=== PATIENT | male | born 1950 | race Caucasian/White ===

== ENCOUNTER → 2024-05-28 | Outpatient (CLI) | payer OTHER, SELFPAY ==
[2024-05-28 11:23] LABS: Basophils # (Auto) 0.1 Thou/mm3 (0.0-0.2); Basophils % (Auto) 1 % (0-2.5); Eosinophils % (Auto) 10 % (0-10); Hematocrit 42.7 % (41.0-53.0); Hemoglobin 14.6 g/dL (13.5-16.0); Immature Granulocytes % (Auto) 0 % (0-0); Immature Granulocytes Auto 0.02 Thou/mm3 (0.00-0.00); Lymphocytes % (Auto) 31 % (10-50); Mean Corpuscular HGB Conc 34.2 g/dl (31.0-37.0); Mean Corpuscular Hemoglobin 29.4 pg (25.0-35.0); Mean Corpuscular Volume 86 fL (80-100); Monocytes # (Auto) 0.8 Thou/mm3 (0.0-0.8); Monocytes % (Auto) 8 % (0-12); Neutrophils % (Auto) 51 % (37-80); Nucleated Red Blood Cell % 0 /100 WBC (0); Platelet Count 298 Thou/mm3 (140-440); RDW Standard Deviation 42.6 fL (35.1-43.9); Red Blood Count 4.97 Miln/mm3 (4.50-5.90); White Blood Count 9.8 Thou/mm3 (3.8-10.6)
[2024-05-28 11:38] LABS: Prostate Specific Antigen 0.15 ng/mL (0-4.00)
[2024-05-28 11:42] LABS: Glucose Estimated Average 117 mg/dL (80-131); Hemoglobin A1C 5.7 % Hgb (4.8-6.0)
[2024-05-28 11:43] LABS: Vitamin D 25 Hydroxy Total 32.4 ng/mL (7.3-40.2)
[2024-05-28 12:49] LABS: Alanine Aminotransferase 16 U/L (10-49); Albumin, Serum 4.2 gm/dL (3.4-4.8); Albumin/Globulin Ratio 1.4 (1.2-2.2); Alkaline Phosphatase 124 U/L (46-116); Anion Gap 6 (7-16); Aspartate Amino Transferase 19 U/L (0-34); BUN/Creatinine Ratio 9 Ratio (12-20); Bilirubin,Total 0.9 mg/dL (0.3-1.2); Blood Urea Nitrogen 15 mg/dL (9-23); Calcium 9.7 mg/dL (8.3-10.6); Calcium (Corrected) 9.7 mg/dL (8.5-10.1); Carbon Dioxide 26.2 mMol/L (20.0-31.0); Cardiac Risk Estimate 3.7 RATIO (4.0-6.7); Chloride 102 mMol/L (98-107); Cholesterol 205 mg/dL (132-200); Creatinine (Component) 1.6 mg/dL (0.6-1.3); Free T4 (Free Thyroxine) 0.86 ng/dL (0.89-1.76); Glucose 103 mg/dL (74-106); HDL Cholesterol 55 mg/dL (40-60); LDL Cholesterol,Calculated 132 mg/dL (0-130); Osmolality,Calculated 269 (275-295); Potassium 4.7 mMol/L (3.4-5.1); Sodium 134 mMol/L (136-145); Thyroid Stimulating Hormone 6.63 uIU/mL (0.55-4.78); Total Protein 7.2 gm/dL (5.7-8.2); Triglycerides 90 mg/dL (30-150); eGFR 45 See Note
== END | disposition home or self-care (01) ==
LOC: COPL 10:35
PROVIDERS: PCP Internal Medicine; Referring Provider Internal Medicine; Visit Provider Internal Medicine
DX: Z00.00 Encounter for general adult medical examination without abnormal findings (principal); N40.1 Benign prostatic hyperplasia with lower urinary tract symptoms; E55.9 Vitamin D deficiency, unspecified
CPT/HCPCS: 36415; 80053; 80061; 82306; 83036; 84153; 84439; 84443; 85025

== ENCOUNTER 2024-06-08 06:45 | Day surgery (SDC) | payer OTHER, SELFPAY ==
--- NOTE | 2024-06-03 07:00 | XR_ITS ---
Examination: PA lateral chest 2 views TECHNIQUE: Upright PA lateral chest 2 views EXAMINATION: Coughing, chronic preop FINDINGS: Abnormal interstitial disease in the mid and lower lung zones Mild prominence left ventricle Moderate osteopenia IMPRESSION: Bronchitis versus pulmonary fibrosis at the lung bases, clinical correlation advised
--- NOTE | 2024-06-03 07:00 | EKG_ITS ---
[facility] Test Date: 2024-06-03 Pat Name: CAROL MILLIGAN Department: Room: - Gender: Male Service Crew Leader: LEELA : 1950 Requested By: Broderick Roland Order Number: [id number] Reading MD: Broderick Roland Measurements Intervals [place] Rate: 79 P: 36 [place]: 169 QRS: 35 QRSD: 101 T: 31 QT: 376 QTc: 431 Interpretive Statements SINUS RHYTHM Compared to ECG 08/11/2023 21:26:21 No significant changes /store/S0/[id number]/ecg/[id number].pdf
[2024-06-03 07:15] VITALS: BMI 30.7
[2024-06-03 09:41] LABS: Basophils # (Auto) 0.1 Thou/mm3 (0.0-0.2); Basophils % (Auto) 1 % (0-2.5); Eosinophils # (Auto) 0.9 Thou/mm3 (0.0-0.5); Eosinophils % (Auto) 8 % (0-10); Hematocrit 41.6 % (41.0-53.0); Hemoglobin 14.2 g/dL (13.5-16.0); Immature Granulocytes % (Auto) 0 % (0-0); Immature Granulocytes Auto 0.04 Thou/mm3 (0.00-0.00); Lymphocytes # (Auto) 3.2 Thou/mm3 (1.0-4.8); Lymphocytes % (Auto) 30 % (10-50); Mean Corpuscular HGB Conc 34.1 g/dl (31.0-37.0); Mean Corpuscular Hemoglobin 29.2 pg (25.0-35.0); Mean Corpuscular Volume 85 fL (80-100); Monocytes % (Auto) 10 % (0-12); Neutrophils # (Auto) 5.6 Thou/mm3 (1.8-7.7); Neutrophils % (Auto) 51 % (37-80); Nucleated Red Blood Cell % 0 /100 WBC (0); Platelet Count 305 Thou/mm3 (140-440); RDW Standard Deviation 42.3 fL (35.1-43.9); Red Blood Count 4.87 Miln/mm3 (4.50-5.90); White Blood Count 10.8 Thou/mm3 (3.8-10.6)
[2024-06-03 09:49] LABS: Partial Thromboplastin Time 29.3 Seconds (22.0-36.0); Prothrombin Time 10.6 Seconds (9.0-12.2)
[2024-06-03 09:58] LABS: Alanine Aminotransferase 14 U/L (10-49); Albumin, Serum 4.5 gm/dL (3.4-4.8); Albumin/Globulin Ratio 1.4 (1.2-2.2); Alkaline Phosphatase 114 U/L (46-116); Anion Gap 4 (7-16); Aspartate Amino Transferase 18 U/L (0-34); BUN/Creatinine Ratio 10 Ratio (12-20); Bilirubin,Total 0.6 mg/dL (0.3-1.2); Blood Urea Nitrogen 17 mg/dL (9-23); Calcium 9.6 mg/dL (8.3-10.6); Calcium (Corrected) 9.6 mg/dL (8.5-10.1); Carbon Dioxide 27.6 mMol/L (20.0-31.0); Chloride 100 mMol/L (98-107); Creatinine (Component) 1.7 mg/dL (0.6-1.3); Estimated Creatinine Clearance 45.2 mL/min (>60); Globulin 3.2 gm/dL (2.3-3.5); Glucose 96 mg/dL (74-106); Osmolality,Calculated 266 (275-295); Potassium 4.4 mMol/L (3.4-5.1); Sodium 132 mMol/L (136-145); Total Protein 7.7 gm/dL (5.7-8.2); eGFR 42 See Note
--- NOTE | 2024-06-03 12:36 | SUR.PREOP ---
DR CAMPA REVIEWED AND OKAYED CARDIAC NOTES AND AWARE OF CXR.
--- NOTE | 2024-06-05 12:12 | ESHP_ITS ---
RE: CAROL MILLIGAN : 1950 DATE OF ADMISSION: 06/03/2024 DATE OF SURGERY: 06/08/2024. CHIEF COMPLAINT: Numbness, tingling, left hand; triggering left ring finger. HISTORY OF PRESENT ILLNESS: The patient is a 74-year-old who has developed numbness and tingling in the left hand with triggering of the left ring finger. He continues to have persistent numbness and tingling and pain in the left ring finger and left hand. Positive EMG and nerve conduction study. PAST MEDICAL HISTORY: Operation: Tonsillectomy and herniorrhaphy. ALLERGIES: TETRACYCLINE MEDICATIONS: 1. Montelukast. 2. Pravastatin. 3. Amlodipine. 4. Albuterol inhaler. MAJOR MEDICAL ILLNESSES: 1. Hypertension. 2. Prostate cancer in 2004. FAMILY HISTORY: Oral carcinoma, family history of heart disease, TB, diabetes, glaucoma, myocardial infarction, liver disease, hypertension, emphysema, stroke, epilepsy, bleeding disorder, and ulcer. REVIEW OF SYSTEMS: Weight is stable. Appetite is good. Energy level good. Denies chest pain, shortness of breath, orthopnea, paroxysmal nocturnal dyspnea, dyspnea on exertion, productive cough, hemoptysis. Denies nausea, vomiting, diarrhea, constipation, hematemesis, hematochezia, melena, black tarry bowel movements. Denies dysuria or prior hematuria. Denies stroke, seizures, or syncopal episodes. No change in moles. No difficulty with balance. SOCIAL HISTORY: He does not smoke. Does not drink. PHYSICAL EXAMINATION: GENERAL: Shows a well-developed, well-nourished male in no acute distress. HEENT: Normocephalic without masses. EOMs full. Throat clear. NECK: Supple. CHEST: Clear to P and A. CARDIOVASCULAR: Heart: Regular rate and rhythm. No murmurs or gallops. ABDOMEN: Soft, nontender. No masses. No organomegaly. EXTREMITIES: Examination of the extremity shows he has numbness and tingling in the left hand median nerve distribution. There is triggering of the left long finger. ASSESSMENT: 1. Carpal tunnel syndrome, left hand. 2. Left ring trigger finger. PLAN: Release of left carpal tunnel and left ring trigger finger. Risks of the procedure were explained to the patient. Signed informed consent was obtained in my office with Dr. Broderick iNxon. DT: 15:28:34 TT: 16:07:00 Ref: [id number] - TID: [id number]
[2024-06-08] VITALS (11 sets, daily range): BP systolic 115–157; BP diastolic 75–95; PULSE 64–75; RESP 12–19; TEMP 36.3–36.9; O2SAT 95–97; BMI 30.2
--- NOTE | 2024-06-08 10:30 | SUR.PHASEII ---
pt received from OR in recovery bay 7. pt asleep but responds to voice, breathing unlabored on room air. v/s stable. pt dressing to left hand cdi. report received from Dr. Link and Jadiel LAURENT.
--- NOTE | 2024-06-08 12:44 | SUR.PHASEII ---
pt awake and alert, breathing unlabored on room air. v/s stable. pt dressing to left hand cdi. pt able to ambulate to wheelchair with steady gait. d/c instructions given with martin Cai in room, all questions answered. pt d/c via wheelchair with all belongings.
--- NOTE | 2024-06-08 21:57 | PD.SUROPNT ---
Date of Procedure 06/08/24 Surgeon Broderick Nixon MD Surgical Staff Operation Date: 06/08/24 09:00 Case Staff Anesthesiologist: Yury Link
--- NOTE | 2024-06-08 21:58 | ESOP_ITS ---
Date of Procedure 06/08/24 Pre Op Diagnosis 1. Left carpal tunnel syndrome 2. Left ring trigger finger Post Op Diagnosis Same Procedure 1. Release of left carpal tunnel. 2. Release of left ring trigger finger Findings Thick transverse carpal ligament left palm. Thickened A1 cary left ring trigger finger Procedure Description Patient was taken the operating room and the left carpal tunnel and left ring trigger finger were identified as the correct parts of the left hand carpal tunnel and the left ring trigger finger. Patient was given IV Ancef. MAC anesthesia was delivered and infiltration of the palmar aspect of the left hand over the transverse carpal ligament as well as a digital nerve block left ring finger were carried out. Lidocaine was used for the local anesthesia. The left upper extremity was then elevated and exsanguinated with Esmarch bandage. The tourniquet was inflated. Good hemostasis was achieved. L ongitudinal incision was made over the transverse carpal ligament. It was carried down through the subcutaneous tissue and the palmar aponeurosis was divided. The transverse carpal ligament was incised distally with a #15 blade and proximally into the distal antebrachial fascia he using a small curved strabismus scissors the ligament was released in its entirety. The nerve was noted to be pinched deep to the transverse carpal ligament. After this was done a transverse incision was made over the metacarpal phalangeal joint of the left ring finger. Incision was carried down through the subcutaneous tissue to the palmar aponeurosis which was divided gentle blunt dissection was carried out down to the A1 cary It was identified and incised. The patient was then awakened and asked to flex and extend the left ring finger. He was able to do so and there was absolutely no triggering. Both wounds copious irrigated with Betadine and saline solution. The skin was closed with 5-0 nylon over the ring finger and then in layers for the left carpal tunnel release using 5-0 Vicryl and 5-0 nylon. Tourniquet deflated Bulky dressing was applied using Dakin soaked Kerlix sponges dry Kerlix sponges and 4 inch cut bias. Bactroban ointment was applied prior to the dressing. Addendum the tourniquet was deflated and minimal bleeding was encountered at the metacarpal phalangeal joint left ring finger and there was some subcutaneous bleeding of the left carpal tunnel release and good hemostasis was achieved with the Bovie both wounds were dry at the end of the procedure. Sponge needle counts were correct. Taken to the recovery room uneventfully Anesthesia MAC and local Drains 0 Implants None Pathology / specimen None Pathology comment: None IVF Infused 500 Urine Output 0 Estimated Blood Loss 10 Condition Stable Surgeon Broderick Nixon MD Surgical Staff Operation Date: 06/08/24 09:00 Case Staff Anesthesiologist: uYry Link
== END 2024-06-08 12:44 | disposition home or self-care (01) ==
PROVIDERS: PCP Internal Medicine; Referring Provider Orthopaedic Surgery; Visit Provider Orthopaedic Surgery
PROC: (CPT 26055; principal; 2024-06-08 08:45)
PROC: (CPT 64721; 2024-06-08 08:45)
DX: G56.02 Carpal tunnel syndrome, left upper limb (principal); M65.342 Trigger finger, left ring finger; Z82.49 Family history of ischemic heart disease and other diseases of the circulatory system; Z83.3 Family history of diabetes mellitus; Z01.810 Encounter for preprocedural cardiovascular examination
CPT/HCPCS: 26055; 64721; 36415; 71046; 80053; 85025; 85610; 85730; 93005; A4649; J0690; J1885; J2250; J2704; J3010; J3490; A9270

== ENCOUNTER → 2024-07-31 | Outpatient (CLI) | payer OTHER, SELFPAY ==
[2024-07-31 14:36] LABS: Free T4 (Free Thyroxine) 1.21 ng/dL (0.89-1.76); Thyroid Stimulating Hormone 0.93 uIU/mL (0.55-4.78)
== END | disposition home or self-care (01) ==
LOC: COPL 13:47
PROVIDERS: PCP Internal Medicine; Referring Provider Internal Medicine; Visit Provider Internal Medicine
DX: E03.9 Hypothyroidism, unspecified (principal)
CPT/HCPCS: 36415; 84439; 84443

== ENCOUNTER → 2024-08-05 | Outpatient (CLI) | payer OTHER, SELFPAY ==
--- NOTE | 2024-08-05 09:00 | XR_ITS ---
Examination: CT chest, without intravenous contrast. Sagittal and coronal 2-D reconstructions. Exam date and time: August 05, 2024 0909 hours INDICATIONS: CT chest February 05, 2024 bilateral pulmonary nodules, also noted on CT chest November 05, 2023 CTDI:vol (mGy) 13.9 DLP: (mGycm) 531 Technique: Multiple 3.0 mm axial sections of the chest to been obtained. Bone and lung density settings are obtained. Sagittal and coronal 2-D reconstructions have been obtained. Low dose protocols were performed. One or more of the following dose reduction techniques were used; automated exposure control, adjustment of the mA and/or KV according to patient size, use of iterative reconstruction technique. Findings: No thoracic aortic aneurysmal dilatation Pulmonary artery segments are not enlarged Mild calcification left anterior descending coronary artery No paratracheal tracheobronchial or bronchopulmonary adenopathy No change in bilateral subcentimeter pulmonary nodules Mild pulmonary fibrosis bilaterally No interval pneumonia or pulmonary edema Stable liver cysts IMPRESSION: No change in bilateral subcentimeter pulmonary nodules No new pulmonary nodules
== END | disposition home or self-care (01) ==
LOC: CCTX 08:36
PROVIDERS: Referring Provider Specialist; Visit Provider Specialist
DX: R91.8 Other nonspecific abnormal finding of lung field (principal)
CPT/HCPCS: 71250

== ENCOUNTER 2024-08-17 06:20 | Day surgery (SDC) | payer OTHER, SELFPAY ==
[2024-08-14 10:53] VITALS: BMI 30.8
[2024-08-14 12:28] LABS: Basophils # (Auto) 0.1 Thou/mm3 (0.0-0.2); Basophils % (Auto) 1 % (0-2.5); Eosinophils # (Auto) 0.8 Thou/mm3 (0.0-0.5); Eosinophils % (Auto) 8 % (0-10); Hematocrit 41.4 % (41.0-53.0); Hemoglobin 14.1 g/dL (13.5-16.0); Immature Granulocytes % (Auto) 0 % (0-0); Immature Granulocytes Auto 0.04 Thou/mm3 (0.00-0.00); Lymphocytes # (Auto) 2.8 Thou/mm3 (1.0-4.8); Lymphocytes % (Auto) 30 % (10-50); Mean Corpuscular HGB Conc 34.1 g/dl (31.0-37.0); Mean Corpuscular Hemoglobin 29.3 pg (25.0-35.0); Mean Corpuscular Volume 86 fL (80-100); Monocytes # (Auto) 0.8 Thou/mm3 (0.0-0.8); Monocytes % (Auto) 8 % (0-12); Neutrophils # (Auto) 5.1 Thou/mm3 (1.8-7.7); Neutrophils % (Auto) 53 % (37-80); Nucleated Red Blood Cell % 0 /100 WBC (0); Platelet Count 286 Thou/mm3 (140-440); RDW Standard Deviation 42.2 fL (35.1-43.9); Red Blood Count 4.82 Miln/mm3 (4.50-5.90); White Blood Count 9.6 Thou/mm3 (3.8-10.6)
[2024-08-14 12:36] LABS: Partial Thromboplastin Time 28.5 Seconds (22.0-36.0); Prothrombin Time 10.9 Seconds (9.0-12.2)
[2024-08-14 12:38] LABS: Alanine Aminotransferase 11 U/L (10-49); Albumin, Serum 4.1 gm/dL (3.4-4.8); Albumin/Globulin Ratio 1.3 (1.2-2.2); Alkaline Phosphatase 106 U/L (46-116); Anion Gap 6 (7-16); Aspartate Amino Transferase 20 U/L (0-34); BUN/Creatinine Ratio 14 Ratio (12-20); Bilirubin,Total 0.5 mg/dL (0.3-1.2); Blood Urea Nitrogen 20 mg/dL (9-23); Calcium 9.2 mg/dL (8.3-10.6); Calcium (Corrected) 9.2 mg/dL (8.5-10.1); Carbon Dioxide 26.7 mMol/L (20.0-31.0); Chloride 102 mMol/L (98-107); Creatinine (Component) 1.4 mg/dL (0.6-1.3); Globulin 3.1 gm/dL (2.3-3.5); Glucose 107 mg/dL (74-106); Osmolality,Calculated 272 (275-295); Potassium 4.7 mMol/L (3.4-5.1); Sodium 135 mMol/L (136-145); Total Protein 7.2 gm/dL (5.7-8.2); eGFR 53 See Note
--- NOTE | 2024-08-15 19:20 | ESHP_ITS ---
RE: CAROL MILLIGAN : 1950 DATE OF ADMISSION: 08/17/2024 DATE OF SURGERY: 08/17/2024. CHIEF COMPLAINT: Numbness and tingling, right hand. HISTORY OF PRESENT ILLNESS: The patient is a 74-year-old who has developed numbness and tingling in his right hand. EMG and nerve conduction test consistent with a right carpal tunnel syndrome. He recently had his left carpal tunnel released and is doing very well. PAST MEDICAL HISTORY: Reviewed. The patient has two children. BLOOD TRANSFUSION: None. OPERATIONS: Tonsillectomy, herniorrhaphy, prostate surgery. ALLERGIES: TETRACYCLINE. MEDICATIONS: 1. Amlodipine. 2. Montelukast. 3. Pravastatin. 4. Albuterol. MAJOR MEDICAL ILLNESSES: History of asthma, hypertension, elevated cholesterol. FAMILY HISTORY: Positive for cancer. MAJOR MEDICAL ILLNESSES: Denies heart disease, heart attack, heart murmur, gout, kidney disease, liver disease, hepatitis, polio, tuberculosis, arthritis, yellow jaundice, cholelithiasis, diabetes, valley fever, depression, ulcer, or cancer. FAMILY HISTORY: Unremarkable. REVIEW OF SYSTEMS: Denies chest pain, shortness of breath, orthopnea, paroxysmal nocturnal dyspnea, dyspnea on exertion, productive cough. Denies nausea, vomiting, diarrhea, constipation, hematemesis, hematochezia, melena, black tarry bowel movements. Denies dysuria or prior hematuria. Denies stroke, seizures, or syncopal episodes. No difficulty with balance. Numbness and tingling in the right hand. Does not smoke. Does not drink. Had release of his left carpal tunnel in 06/2024 and is doing well. PHYSICAL EXAMINATION: GENERAL: Shows a well-developed, well-nourished male in no acute distress. HEENT: Normocephalic without masses. EOMs full. Throat is clear. NECK: Supple. CHEST: Clear to P and A. HEART: Regular rate and rhythm. No murmurs. No gallops. ABDOMEN: Soft, nontender. No masses. No organomegaly. BREASTS, RECTAL AND GENITAL: Deferred. EXTREMITIES: Examination of the extremities shows he has numbness and tingling in his right hand median nerve distribution. Positive Phalen's test. Does have some thenar atrophy, right hand. ASSESSMENT: Right carpal tunnel syndrome. PLAN: Release of right carpal tunnel. Risks of the procedure were explained to the patient including the possibility of infection, no improvement, need for further surgery, recurrence, during anesthesia and he understands and willing to proceed. DT: 16:30:47 TT: 19:07:00 Ref: [id number] - TID: [id number]
[2024-08-17] VITALS (8 sets, daily range): BP systolic 86–132; BP diastolic 53–83; PULSE 72–81; RESP 12–20; TEMP 36.1–36.8; O2SAT 96–97; BMI 30.1
[2024-08-17] MEDS: ALBUTEROL RT 2.5 MG/3 ML NEBU INH (07:27)
[2024-08-17] MEDS: RINGERS LACTATED 1000 ML 1,000 ML 20 ML IV (07:27)
--- NOTE | 2024-08-17 10:15 | PD.SUROPNT ---
Date of Procedure 08/17/24 Pre Op Diagnosis Right carpal tunnel syndrome Post Op Diagnosis Right carpal tunnel syndrome Procedure Release of right carpal tunnel Findings Thick transverse carpal ligament right wrist Procedure Description Patient taken the operating room after satisfactory general anesthesia was achieved the right upper extremity was identified the correct extremity. He is received 2 g of IV Ancef. The arm was prepped draped standard fashion. The arm was elevated and exsanguinated weighted with an Esmarch bandage. The tourniquet was plated to 200 mmHg. A longitudinal incision was made over the transverse carpal ligament. It was carried down through the subcutaneous tissue. Surgeon Broderick Nixon MD Surgical Staff Operation Date: 08/17/24 08:45 Case Staff Anesthesiologist: Yury Link
--- NOTE | 2024-08-17 10:17 | SUR.PHASEI ---
pt received from OR in recovery bay 1. pt obtunded, breathing unlabored on 5 nc, lma in place. v/s stable. pt dressing to right wrist/hand cdi. report received from Isiah LAURENT and Dr. Link.
--- NOTE | 2024-08-17 10:20 | PD.SUROPNT ---
Date of Procedure 08/17/24 Pre Op Diagnosis Right carpal tunnel syndrome Post Op Diagnosis Right carpal tunnel syndrome Procedure Release of right carpal tunnel Findings Thick transverse carpal ligament Procedure Description Patient taken the operating room and after satisfactory general anesthesia was achieved the right upper extremity identified as the correct extremity during the timeout procedure. He received 2 g of Ancef. The right upper extremity was then prepped and draped in the standard fashion. The arm was elevated and exsanguinated with an Esmarch bandage. The tourniquet was plated to 200 mmHg. Longitudinal incision was made over the palmar aspect of the hand. Subcutaneous tissue was divided. The palmar aponeurosis was divided. Transverse carpal ligament was identified and split distally with a #15 blade and proximally into the distal antebrachial fascia using a small curved strabismus scissors. The ligament was released completely. Small bleeders were electrocoagulated after the tourniquet was released. Skin was closed with interrupted 4-0 and 5-0 nylon suture. The wound edges were infiltrated with 2% lidocaine. Sponge needle counts correct. Bulky dressing applied. Taken to the recovery room uneventfully. Anesthesia GETA Drains None Implants None Pathology / specimen None IVF Infused 700 Urine Output 0 Estimated Blood Loss 10 Condition Stable Disposition PACU Surgeon Broderick Nixon MD Surgical Staff Operation Date: 08/17/24 08:45 Case Staff Anesthesiologist: Yury Link
--- NOTE | 2024-08-17 10:43 | SUR.PHASEI ---
pt able to tolerate oral fluids without difficulty swallowing or nausea/vomiting.
--- NOTE | 2024-08-17 11:24 | SUR.PHASEII ---
pt awake and alert, breathing unlabored on room air. v/s stable. pt dressing to right hand/wrist cdi. pt able to ambulate to wheelchair with steady gait. d/c instructions given with martin Cai in room, all questions answered. pt d/c via wheelchair with all belongings.
== END 2024-08-17 11:24 | disposition home or self-care (01) ==
PROVIDERS: PCP Internal Medicine; Referring Provider Orthopaedic Surgery; Visit Provider Orthopaedic Surgery
PROC: (CPT 64721; principal; 2024-08-17 08:30)
DX: G56.01 Carpal tunnel syndrome, right upper limb (principal); J45.909 Unspecified asthma, uncomplicated; I10 Essential (primary) hypertension; E78.00 Pure hypercholesterolemia, unspecified
CPT/HCPCS: 64721; 36415; 80053; 85025; 85610; 85730; A4217; A4649; J0690; J1100; J1885; J2250; J2371; J2405; J2704; J3010; J7120

== ENCOUNTER → 2025-02-11 | Outpatient (CLI) | payer OTHER, SELFPAY ==
--- NOTE | 2025-02-11 17:00 | XR_ITS ---
Examination: CT chest, without intravenous contrast. Sagittal and coronal 2-D reconstructions. Exam date and time: February 11, 2025 1702 hours INDICATIONS: CT chest August 05, 2024 bilateral pulmonary nodules, CT chest February 05, 2024 bilateral pulmonary nodules CTDI:vol (mGy) 13 DLP: (mGycm) 538 Technique: Multiple 3.0 mm axial sections of the chest to been obtained. Bone and lung density settings are obtained. Sagittal and coronal 2-D reconstructions have been obtained. Low dose protocols were performed. One or more of the following dose reduction techniques were used; automated exposure control, adjustment of the mA and/or KV according to patient size, use of iterative reconstruction technique. Findings: No thoracic aortic aneurysmal dilatation Pulmonary artery segments are not enlarged. Minor calcification left anterior descending coronary artery No change in bilateral subcentimeter pulmonary nodules Minor scarring in the lung meraz No focal liver or splenic lesions excepting benign hepatic cysts Contracted gallbladder Normal pancreas Normal adrenal glands Moderate osteopenia IMPRESSION: Stable bilateral subcentimeter pulmonary nodules No new pulmonary nodules
== END | disposition home or self-care (01) ==
PROVIDERS: PCP Internal Medicine; Referring Provider Specialist; Visit Provider Specialist
DX: R91.8 Other nonspecific abnormal finding of lung field (principal)
CPT/HCPCS: 71250